=== PATIENT | female | born 1960 | race Two or more races ===

== ENCOUNTER 2023-06-29 15:02 | Emergency (ER) | payer MEDICARE, MEDICAID ==
[~2023-06-29] VITALS: Ht 160 cm; Wt 72.7 kg
[2023-06-29] MEDS: MORPHINE SULFATE INJ 2 MG/ml SYRG IM ONE (18:27)
[2023-06-29] MEDS: ONDANSETRON ODT 4 MG TAB PO ONE (18:27)
[2023-06-29 18:32] VITALS: PULSE 70; RESP 20; O2SAT 99
[2023-06-29] MEDS ORDERED: CYCL-837 PO (20:34)
[2023-06-29] MEDS ORDERED: ACE3T PO (20:34)
[2023-06-29 20:42] VITALS: BP 122/78; PULSE 68; RESP 16; TEMP 97.8; O2SAT 97
== END 2023-06-29 20:34 | disposition home or self-care (01) ==
LOC: ER 15:02
DX: S32.028A Other fracture of second lumbar vertebra, initial encounter for closed fracture (principal); S70.01XA Contusion of right hip, initial encounter; I10 Essential (primary) hypertension; Z79.899 Other long term (current) drug therapy; Z79.1 Long term (current) use of non-steroidal anti-inflammatories (NSAID); Z88.0 Allergy status to penicillin; W11.XXXA Fall on and from ladder, initial encounter; Y93.89 Activity, other specified; Y92.89 Other specified places as the place of occurrence of the external cause; Y99.8 Other external cause status
CPT/HCPCS: 72125; 72131; 72192; 96372; 99285; J2270; Q0162

== ENCOUNTER 2024-02-20 16:41 | Emergency (ER) | payer MEDICARE, MEDICAID ==
[~2024-02-20] VITALS: Ht 160 cm; Wt 75.7 kg
[~2024-02-20 16:41] MED LIST: ACE3T PO; CIPR-173 PO; CYCL-837 PO; GABA-1250 PO
[2024-02-20 18:03] VITALS: BP 134/63; TEMP 97.8
[2024-02-20] MEDS: ONDANSETRON ODT 4 MG TAB PO ONE (18:03)
[2024-02-20 18:04] VITALS: PULSE 81; RESP 18; O2SAT 98
[2024-02-20 18:47] LABS: Urine Bacteria None Seen /hpf (None Seen); Urine WBC None Seen /hpf (0 - 5)
[2024-02-20 19:02] LABS: Urine Amorphous Crystal FEW /hpf (None Seen); Urine Blood Negative /uL (Negative); Urine Clarity Ex.Turbid (Clear); Urine Color Brown (Yellow); Urine Protein, UAD 1+ (Negative); Urine Specific Gravity 1.029 (1.001-1.035); Urine Urobilinogen Normal (Negative); Urine pH 5.5 (5.0-9.0)
[2024-02-20] MEDS ORDERED: DICY10CA PO (19:23)
[2024-02-20] MEDS ORDERED: ZOFR4T PO (19:23)
== END 2024-02-20 21:02 | disposition left against medical advice (07) ==
LOC: ER 16:48
DX: A08.4 Viral intestinal infection, unspecified (principal); I10 Essential (primary) hypertension; E66.01 Morbid (severe) obesity due to excess calories; Z68.29 Body mass index [BMI] 29.0-29.9, adult; Z88.0 Allergy status to penicillin; Z88.6 Allergy status to analgesic agent; Z79.899 Other long term (current) drug therapy
CPT/HCPCS: 81001; 99283; Q0162